=== PATIENT | female | born 1965 | race Caucasian/White ===

== ENCOUNTER 2018-08-14 12:51 | Outpatient (CLI) | payer OTHER | END 2018-08-14 12:52 | disposition home or self-care (01) | LOC: BICMAMMO 12:51 | PROVIDERS: ATTEND Obstetrics & Gynecology | DX: Z12.31 Encounter for screening mammogram for malignant neoplasm of breast (principal); N63.11 Unspecified lump in the right breast, upper outer quadrant; Z80.3 Family history of malignant neoplasm of breast | CPT/HCPCS: 77063; 77067 ==

== ENCOUNTER 2018-08-27 12:48 | Outpatient (CLI) | payer OTHER ==
--- NOTE | 2018-08-27 13:59 | ULT ---
LIMITED RIGHT BREAST ULTRASOUND: Date: 08-27-18 Provided Clinical History: Abnormal mammogram. FINDINGS: Limited sonographic interrogation of the right breast was performed in the region of mammographic con cern. A simple cyst is demonstrated at the 10 o'clock location of the right breast, corresponding to the mammographic findings. IMPRESSION: BIRADS category 2 - benign findings. Annual screening mammography recommended. POS: OFF
== END 2018-08-27 12:49 | disposition home or self-care (01) ==
LOC: BICMAMMO 12:48
PROVIDERS: ATTEND Obstetrics & Gynecology
DX: N63.11 Unspecified lump in the right breast, upper outer quadrant (principal); Z80.3 Family history of malignant neoplasm of breast
CPT/HCPCS: G0279

== ENCOUNTER 2018-09-16 11:22 | Outpatient (CLI) | payer OTHER ==
--- NOTE | 2018-09-16 13:08 | RAD ---
THREE VIEWS LUMBAR SPINE: 09/16/18 INDICATION: Low back pain. COMPARISON: Prior MR of the lumbar spine dated 06/27/16. FINDINGS: There is worsening grade I anterolisthesis of L4 on L5. No abnormal translational motion is grossly e vident at this level with flexion and extension. There is very subtle retrolisthesis of L3 on L4, L2 on L3 and L1 on L2 that appears stable with the upright neutral position and slightly reduces with th e flexion position. IMPRESSION: Worsening grade I anterolisthesis of L4 on L5 without abnormal translational motion. Mild retrolisthe sis of L1 on L2, L2 on L3, L3 on L4 that slightly reduces with flexion. POS: JULIANN
== END 2018-09-16 11:23 | disposition home or self-care (01) ==
LOC: TBSIIMAG 11:22
PROVIDERS: ATTEND Specialist
DX: M43.16 Spondylolisthesis, lumbar region (principal)
CPT/HCPCS: 72100

== ENCOUNTER 2021-06-23 08:45 | Outpatient (CLI) | payer BC | END 2021-06-23 08:46 | disposition home or self-care (01) | LOC: BICMRI 08:45 | PROVIDERS: ATTEND Nurse Practitioner Family | DX: M47.26 Other spondylosis with radiculopathy, lumbar region (principal); M71.38 Other bursal cyst, other site; M48.061 Spinal stenosis, lumbar region without neurogenic claudication; M43.16 Spondylolisthesis, lumbar region; M41.85 Other forms of scoliosis, thoracolumbar region | CPT/HCPCS: 72148 ==